=== PATIENT | female | born 1990 | race Caucasian/White ===

== ENCOUNTER 2022-06-17 00:52 | Day surgery (SDC) | payer OTHER, SELFPAY ==
[2022-06-15 12:25] VITALS: BMI 25.0
--- NOTE | 2022-06-15 12:28 | PC.NURSE ---
Report to the Outpatient Waiting Room, entrance under the green pavilion located off [facility], at time 1130 on date 06/17/22. Planned Procedure Time: 1330. Time changes happen often and if your time is changed the preop area will call you the afternoon before. - You and your visitor will be asked to self-screen and do not enter if you have any COVID symptoms. - We encourage only one visitor and NO visitors under age 16 are allowed at this time. Your visitor will receive communication by the phone number that is given day of service. - The patient visitor is requested to social distance or may leave the building when not with patient due to restrictions. - A mask is OPTIONAL within the hospital. Patients may have clear liquids (water, carbonated beverages, clear teas, apple juice) until 3 hours prior to surgery with a maximum of 20 ounces. - No food from midnight until time of surgery Take the following medications with a SIP of water the morning of surgery: NONE Medications to discontinue per physician: N/A Date to take last dose: N/A Please no make-up, nail uzbek, hairspray, perfume, deodorant, or body powder the day of surgery. No jewelry (including any body piercings) or valuables the day of surgery, leave them at home. Please take a shower or bath the night before, or the morning of, surgery with an antibacterial soap. Wear comfortable, loose fitting clothing. - Jewelry must be removed prior to entering the operating room. Rings and piercings that are not removed may be cut off. - The hospital will not accept responsibility for valuables. - Please leave all valuables, including medications, at home the day of surgery. If you are going home after surgery, a licensed horse and wagon driver must drive you home. - NO public transportation without another adult. - We recommend that an adult stay with you for 24 hours following discharge. - We also recommend that you do not drive, make important decision, drink alcoholic beverages, or take any drugs that were not prescribed by your health care provider for at least 24 hours after your discharge time. Follow any additional instructions given to you from your surgeon. If you or anyone in your household have experienced Covid symptoms in the past week, please notify your surgeon or the nurse liaison at the phone number below for possible testing. Telephone instructions given to PT - ANNEL SWAN and asked if any additional questions and then verbalized understanding. Patient advised to call surgeon office or pre surgery nurse liaison [phone] if any additional questions.
[2022-06-17] MEDS: LACTATED RINGERS 1,000 ML 30 ML IV CONT ×2 (12:02→14:01)
[2022-06-17] MEDS: ACETAMINOPHEN 500 MG TABLET 1000 MG PO (12:13)
[2022-06-17 12:16] VITALS: BP 124/71; PULSE 94; RESP 16; TEMP 37.3; O2SAT 100
--- NOTE | 2022-06-17 12:49 | P.PNAN_ITS ---
Anes - Initial Pre Proc Eval Procedure: Operation Date: 06/17/22 13:00 Proposed Procedures p Suction Dilation and Curettage - Chino Clifford MD Date/Time: 06/17/22 12:49 Surgeon: Chino Clifford MD Pre Op Diagnosis: Missed Ab Patient Data Age: 31 Gender: F Height: 1.65 m Weight: 68.1 kg Last Vital Signs Temp 99.1 F 06/17/22 12:16 Pulse 94 06/17/22 12:16 Resp 16 06/17/22 12:16 BP 124/71 06/17/22 12:16 Pulse Ox 100 06/17/22 12:16 O2 Del Method Room Air 06/17/22 12:16 Allergies Allergy/AdvReac Type Severity Reaction Status Date / Time No Known Allergies Allergy Verified 06/17/22 11:47 Home Medications Medication Instructions Recorded Confirmed Type fluticasone propionate 50 1 spray intranasal DAILY 06/15/22 06/17/22 History mcg/actuation nasal spray,suspension Patient hx anesthesia problems: none Family hx anesthesia problems: none Results Review: All pre-operative results and documents have been reviewed as part of the pre- operative evaluation. [facility] Social History Social History Smoking status: Never smoker Alcohol intake: current Alcohol use details: EVERY FEW MONTHS (WHEN NOT ) Substance use: never Substance use type: does not use Living arrangements: with family Spiritual care concerns: No Anes - Eval Final PreProcedure Day of Procedure 06/17/22 12:49 Patient weight: normal Heart: regular rate and rhythm Lungs: clear to auscultation Airway: Mallampati scale class II Neurological: alert and oriented Last oral intake: >/= 8 hours ASA classification: II Emergent: no Anesthetic plan: proceed Anesthesia type and monitoring: general GIVS and standard monitoring Results Review: All pre-operative results and documents have been reviewed as part of the pre- operative evaluation. Informed Consent: The patient's anesthetic plan and its attendant risks and benefits were discussed with the patient/family/POA. Questions were solicited and answers provided to the satisfaction of the patient/family/POA.
--- NOTE | 2022-06-17 12:51 | P.HP_ITS ---
H&P: HPI History of Present Illness Date/Time: 06/17/22 12:51 Chief Complaint: Miscarriage Narrative: 31 y/o at 11w3d gestation by LMP. She had some vaginal bleeding starting 3 days ago. Ultrasound in the office shows IUP with CRL only 9w3d size, with no movement and no cardiac motion. SAB was diagnosed. Her blood type is B neg. Review of Systems 2 Review of Systems: All systems reviewed & are unremarkable except as noted in HPI and below PMFSH Social History Social History Smoking status: Never smoker Alcohol intake: current Alcohol use details: EVERY FEW MONTHS (WHEN NOT ) Substance use: never Substance use type: does not use Living arrangements: with family Spiritual care concerns: No Meds Home Medications and Allergies Home Medications Medication Instructions Recorded Confirmed Type fluticasone propionate 50 1 spray intranasal DAILY 06/15/22 06/17/22 History mcg/actuation nasal spray,suspension Allergies Allergy/AdvReac Type Severity Reaction Status Date / Time No Known Allergies Allergy Verified 06/17/22 11:47 Vital Signs Vital Signs - 24 hr 06/17/22 12:16 Temperature 37.3 C Pulse Rate 94 Respiratory Rate 16 Blood Pressure 124/71 Pulse Oximetry 100 Oxygen Delivery Room Air Exam Const: Orientation/consciousness: patient oriented x3 Other: Well-developed, well-nourished female in no acute distress. Neck: Thyroid: thyroid normal Lymphatic: no lymphadenopathy noted (in neck, axilla or inguinal nodes) Resp: Effort & Inspection: normal respiratory effort Auscultation: clear to auscultation bilaterally Cardio: Rate: regular rate Rhythm: regular rhythm Heart sounds: S1 normal heart sound present and S2 normal heart sound present GI: Other: ABD: Soft, nontender, nondistended. No guarding or rebound tenderness. No hepatosplenomegaly. : General: Yes no CVA tenderness Other: Deferred to OR Back/Spine/Pelvis: Back: no CVA tenderness Skin: General skin exam: normal color and no rashes or lesions noted Neuro: General: patient oriented x3 Extrem: Other: Extremities: nontender with no edema Psych: Mental Status: mental status grossly normal Affect: normal affect Assessment and Plan Assessment and plan (1) Incomplete spontaneous : Code(s): O03.4 - Incomplete spontaneous without complication Status: Acute Assessment and Plan: A: Incomplete SAB. P: Offered expectant management vs. dilation and suction curettage. She prefers the latter. She understands risks of surgery to include risks of anesthesia, risks of pain, infection, bleeding, blood products, thromboembolic phenomena and damage to adjacent structures such as bowel, bladder, ureters, blood vessels and nerves. She understands all these risks and elects to proceed with surgery. She will also require RhoGAM.
--- NOTE | 2022-06-17 13:08 | WPDHPUPDATE1 ---
History and Physical Update Update Date/Time: 06/17/22 13:08 History and Physical has been reviewed, including an updated exam of the patient. There are NO changes in the patient's condition. Risks, benefits, and alternatives have been discussed and questions answered. Patient agrees to proceed with procedure.
[2022-06-17] MEDS: LIDOCAINE HCL 1% PF 30 ML VIAL 10 ML INFILTRATE (13:37)
[2022-06-17] MEDS: KETOROLAC 30 MG/ML VIAL (*BKC) IV PUSH (13:38)
--- NOTE | 2022-06-17 13:44 | W.PM.PROC2 ---
Procedure Note - Detailed Date of Procedure 06/17/22 Pre-op Diagnosis Incomplete SAB Post-op Diagnosis Same Procedure Performed Dilation and suction curettage Surgeon Chino Clifford MD Anesthesia MAC and Local (1% lidocaine paracervical block) Findings POC noted Description of Procedure The patient was taken to the operating room where she was prepared and draped in the usual sterile fashion in the dorsal lithotomy position. The bladder was drained with a red rubber catheter. A sterile speculum was placed into the vagina. The anterior lip of the cervix was grasped with a single-tooth tenaculum. Ten mL of 1% lidocaine was administered in a paracervical block. The cervix was gently dilated using Hegar dilators until an 8mm dilator could be passed. The 8mm curved tip suction curette was advanced. Suction curettage was performed and products of conception were aspirated. Sharp curettage was then performed until a good uterine cry was noted. A final pass with the suction curette was made. The tenaculum was removed. Hemostasis was excellent. Sponge, lap, needle and instrument counts were correct. The patient was taken to the recovery room in stable condition. I was present and scrubbed for the entire procedure. Estimated Blood Loss 50 Drains No Packing No Pathology Yes (endometrial curettings) Complications None Condition Stable Disposition PACU
[2022-06-17 13:46] VITALS: BP 86/54; PULSE 73; RESP 12; O2SAT 97
[2022-06-17 14:15] VITALS: BP 97/57; PULSE 65; RESP 16; O2SAT 100
[2022-06-17] MEDS: RHO(D) IMMUNE GLOBULIN 300 MCG/2 ML SYRINGE IM (14:15)
[2022-06-17 14:45] VITALS: BP 109/63; PULSE 80
== END 2022-06-17 15:07 | disposition home or self-care (01) ==
PROVIDERS: Visit Provider Obstetrics & Gynecology
PROC: (CPT 59812; principal; 2022-06-17 13:00)
DX: O03.4 Incomplete spontaneous abortion without complication (principal); Z3A.11 11 weeks gestation of pregnancy
CPT/HCPCS: 59812; 36415; 85461; 86850; 86900; 86901; 88305; 90384; A9270; J1885; J2250; J2704; J2790; J3010; J7120

== ENCOUNTER 2024-02-24 11:22 | Outpatient (RCR) | payer OTHER, SELFPAY ==
[2024-02-24] MEDS: RHO(D) IMMUNE GLOBULIN 300 MCG/2 ML SYRINGE IM (15:05)
== END 2024-05-24 23:59 | disposition home or self-care (01) ==
LOC: ANHLAB 11:22
PROVIDERS: Visit Provider Obstetrics & Gynecology
DX: Z29.13 Encounter for prophylactic Rho(D) immune globulin (principal); O36.0190 Maternal care for anti-D [Rh] antibodies, unspecified trimester, not applicable or unspecified; Z3A.00 Weeks of gestation of pregnancy not specified
CPT/HCPCS: 36415; 85461; 86850; 86900; 86901; 90384; 96372; J2790

== ENCOUNTER 2024-03-06 10:30 | Outpatient (RCR) | payer OTHER, SELFPAY ==
[2024-03-01 10:48] VITALS: BMI 27.4
[2024-03-01 11:12] VITALS: BMI 27.4
== END 2024-05-15 10:23 | disposition home or self-care (01) ==
LOC: ANHDMC 10:30
PROVIDERS: Visit Provider Obstetrics & Gynecology
DX: O24.319 Unspecified pre-existing diabetes mellitus in pregnancy, unspecified trimester (principal); Z3A.00 Weeks of gestation of pregnancy not specified; Z71.3 Dietary counseling and surveillance; Z71.89 Other specified counseling
CPT/HCPCS: 97802; G0108

== ENCOUNTER 2024-03-10 14:23 | Observation (INO) | payer OTHER, SELFPAY ==
[2024-03-10] VITALS (23 sets, daily range): BP systolic 119–124; BP diastolic 50–71; PULSE 79–106; TEMP 36.6; O2SAT 97–100
[2024-03-10 15:54] LABS: Add Urine Microscopic? YES; Appearance Urine Clear (Clear); Bacteria Urine Rare /hpf; Bilirubin Urine Negative (Negative); Blood Urine Negative (Negative); Color Urine Yellow (Yellow); Glucose Urine UA Negative (Negative); Ketones Urine 1+ mg/dL (Negative); Leukocyte Esterase Ur 1+ LEU/UL (Negative); Nitrate Urine Negative (Negative); Non Pathogenic Casts 0-2; Protein Urine Negative (Negative); RBC Urine 0-2 /hpf (0-2); Specific Grav Ur 1.006 (1.001-1.035); Squamous Epithelial Cell Urine Moderate /hpf (Few); Urobilinogen Urine 0.2 mg/dL (<2.0); pH Urine 6.5 (5.0-9.0)
[2024-03-10] MEDS: TERBUTALINE SULFATE 1 MG/ML VIAL 0.25 MG SUB-Q (16:22)
[2024-03-10 17:16] LABS: Fetal Fibronectin Negative
--- NOTE | 2024-03-13 12:01 | PM.OBTRLD ---
OB - Triage/Final Diagnosis Visit Information Date of evaluation: 03/13/24 Reason for evaluation: threatened labor Comments/Additional reasons for admission: I have assessed the risk for this patient, Mary Kay Adamson, and determined that she would benefit from observation care. Evaluation Laboratory results: Laboratory Tests 03/10/24 03/10/24 15:17 16:42 Urine Color Yellow Urine Appearance Clear Urine pH 6.5 Ur Specific [place] 1.006 Urine Protein Negative Urine Glucose (UA) Negative Urine Ketones 1+ H Ur Blood (Man) Negative Urine Nitrate Negative Urine Bilirubin Negative Urine Urobilinogen 0.2 Leukocyte Esterase Rfl 1+ H Urine RBC 0-2 Urine WBC 6-10 H Ur Squamous Epith Cells Moderate Urine Bacteria Rare Urine Casts 0-2 Fibronectin Negative
== END 2024-03-10 17:35 | disposition home or self-care (01) ==
PROVIDERS: Admitting Provider Obstetrics & Gynecology; Visit Provider Obstetrics & Gynecology
DX: O47.03 False labor before 37 completed weeks of gestation, third trimester (principal); Z3A.30 30 weeks gestation of pregnancy
CPT/HCPCS: 81001; 82731; 87086; 87088; 96372; G0378; G0379; J3105

== ENCOUNTER 2024-03-22 05:23 | Observation (INO) | payer OTHER, SELFPAY ==
[2024-03-22] VITALS (46 sets, daily range): BP systolic 109–117; BP diastolic 62–72; PULSE 73–112; RESP 16; TEMP 36.8; O2SAT 95–100; BMI 28.0
--- NOTE | 2024-03-22 05:23 | PC.NURSE ---
Pt arrives to unit with contractions that began at 0330.
--- NOTE | 2024-03-22 05:42 | OBADM ---
This patient, Mary Kay Adamson, admitted to the OB room OB Post 117 for observation. Patient/family oriented to hospital policies and general routines including ID bracelet, bed and alarms, visiting hours, pain management, procedures, bathroom and other care routines, personal items, smoking policy, room service/diet, and visiting hours. Patient/Family are encouraged to report perceived risks to care and to ask questions if they do not understand what they are told or what they should do.
--- NOTE | 2024-03-22 06:03 | PC.NURSE ---
Called Dr. Clifford, update on contractions every three to four minutes and negative fibronectin on March 10. Orders received to perform cervical exam and administer terbutaline 0.25 mg.
[2024-03-22] MEDS: TERBUTALINE SULFATE 1 MG/ML VIAL 0.25 MG SUB-Q (06:39)
[2024-03-22 07:41] LABS: Glucose Point of Care 99 mg/dl (65-105)
[2024-03-22] MEDS: NIFEdipine 10 MG CAPSULE PO (08:08)
--- NOTE | 2024-03-23 12:22 | PM.OBTRLD ---
OB - Triage/Final Diagnosis Visit Information Reason for evaluation: decreased movement and threatened labor Comments/Additional reasons for admission: I have assessed the risk for this patient, Mary Kay Dupont Bertociarra, and determined that she would benefit from observation care. Evaluation Laboratory results: Laboratory Tests 03/22/24 07:37 POC Capillary Glucose 99
== END 2024-03-22 09:07 | disposition home or self-care (01) ==
PROVIDERS: Admitting Provider Obstetrics & Gynecology; Visit Provider Obstetrics & Gynecology
DX: O36.8130 Decreased fetal movements, third trimester, not applicable or unspecified (principal); O47.03 False labor before 37 completed weeks of gestation, third trimester; Z3A.32 32 weeks gestation of pregnancy
CPT/HCPCS: 82948; 96372; A9270; G0378; G0379; J3105

== ENCOUNTER 2024-03-26 04:30 | Observation (INO) | payer OTHER, SELFPAY ==
[2024-03-26] VITALS (17 sets, daily range): BP systolic 112–116; BP diastolic 66–72; PULSE 83–103; O2SAT 98–100; BMI 28.6
--- NOTE | 2024-03-26 04:53 | PC.NURSE ---
0442-Patient arrives to OB unit with complaints of contractions. Patient states she has been feeling contractions since 0200 and is rating them an 8/10 on the pain scale. Patient denies vaginal bleeding or leaking of fluid. Patient states she has felt baby move. Patient states she has been seen multiple times for this during this and is currently on PO Procardia to home. Patient states she took one dose in the AM and again before bed. Patient states she took another dose around 0230 when she woke up with the contractions and that the Procardia did not help.
[2024-03-26 04:56] LABS: Add Urine Microscopic? NO; Appearance Urine Clear (Clear); Bilirubin Urine Negative (Negative); Blood Urine Negative (Negative); Color Urine Yellow (Yellow); Glucose Urine UA Negative (Negative); Ketones Urine Trace mg/dL (Negative); Leukocyte Esterase Ur Negative LEU/UL (Negative); Nitrate Urine Negative (Negative); Protein Urine Negative (Negative); Specific Grav Ur 1.003 (1.001-1.035); Urobilinogen Urine 0.2 mg/dL (<2.0)
--- NOTE | 2024-03-26 05:05 | PC.NURSE ---
Patient states she has been here multiple times for the same reason. Patient states she has previously gotten terbutaline. Patient states she is a gestational diabetic, but is diet controlled.
[2024-03-26] MEDS: TERBUTALINE SULFATE 1 MG/ML VIAL 0.25 MG SUB-Q (05:21)
[2024-03-26] MEDS: NIFEdipine 10 MG CAPSULE PO (07:01)
--- NOTE | 2024-04-12 14:19 | P.PNOB_ITS ---
OB - Triage/Final Diagnosis Visit Information Comments/Additional reasons for admission: I have assessed the risk for this patient, Mary Kay Adamson, and determined that she would benefit from observation care. Evaluation Laboratory results: Laboratory Tests 03/26/24 04:49 Urine Color Yellow Urine Appearance Clear Urine pH 7.0 Ur Specific [place] 1.003 Urine Protein Negative Urine Glucose (UA) Negative Urine Ketones Trace H Ur Blood (Man) Negative Urine Nitrate Negative Urine Bilirubin Negative Urine Urobilinogen 0.2 Leukocyte Esterase Rfl Negative Final Diagnosis (1) False labor: Code(s): O47.9 - False labor, unspecified Status: Acute
== END 2024-03-26 07:55 | disposition home or self-care (01) ==
PROVIDERS: Admitting Provider Obstetrics & Gynecology; Visit Provider Obstetrics & Gynecology
DX: O47.9 False labor, unspecified (principal)
CPT/HCPCS: 81003; 96372; A9270; G0378; G0379; J3105

== ENCOUNTER 2024-03-31 06:16 | Observation (INO) | payer OTHER, SELFPAY ==
[2024-03-31 06:34] VITALS: BP 120/66; PULSE 94
[2024-03-31 06:40] VITALS: BMI 28.6
--- NOTE | 2024-03-31 06:40 | OBADM ---
This patient, Mary Kay Adamson, admitted to the OB room OB Post 116 for observation. Patient/family oriented to hospital policies and general routines including ID bracelet, bed and alarms, visiting hours, pain management, procedures, bathroom and other care routines, personal items, smoking policy, room service/diet, and visiting hours. Patient/Family are encouraged to report perceived risks to care and to ask questions if they do not understand what they are told or what they should do.
[2024-03-31 06:45] VITALS: BP 111/69; PULSE 98
[2024-03-31 06:58] LABS: OBXCEM ROM Plus Negative
[2024-03-31 06:59] LABS: Add Urine Microscopic? YES; Appearance Urine Clear (Clear); Bacteria Urine None Seen /hpf; Bilirubin Urine Negative (Negative); Blood Urine Negative (Negative); Color Urine Yellow (Yellow); Glucose Urine UA Negative (Negative); Ketones Urine Trace mg/dL (Negative); Leukocyte Esterase Ur Trace LEU/UL (Negative); Nitrate Urine Negative (Negative); Non Pathogenic Casts 0-2; Protein Urine Negative (Negative); RBC Urine 0-2 /hpf (0-2); Specific Grav Ur 1.009 (1.001-1.035); Squamous Epithelial Cell Urine Few /hpf (Few); WBC Urine 0-5 /hpf (0-3)
[2024-03-31 07:00] VITALS: BP 115/66; PULSE 92
--- NOTE | 2024-03-31 07:09 | PM.OBTRLD ---
OB - Triage/Final Diagnosis Visit Information Date of evaluation: 03/31/24 Reason for evaluation: threatened labor Comments/Additional reasons for admission: I have assessed the risk for this patient, Mary Kay Adamson, and determined that she would benefit from observation care. Evaluation Laboratory results: Laboratory Tests 03/31/24 06:56 Membranes Rupture Rom plus negative Membranes Rup Com Yes Vital signs: Vital Signs - 24 hr 03/31/24 06:34 03/31/24 06:45 03/31/24 07:00 Pulse Rate 94 98 92 Blood Pressure 120/66 111/69 115/66 Oxygen Delivery 03/31/24 06:40 Pulse Rate Blood Pressure Oxygen Delivery Room Air
[2024-03-31 07:15] VITALS: BP 111/70; PULSE 98
--- NOTE | 2024-03-31 07:20 | PC.NURSE ---
Dr. Anastasiia Hauser notified of patient's arrival on unit with complaints of leaking and cramping. ROM plus negative, urine WNL. Notified of few contractions seen on monitor and patient already taking Procardia. Orders received to discharge.
[2024-03-31 07:32] VITALS: BP 111/67; PULSE 90
== END 2024-03-31 07:35 | disposition home or self-care (01) ==
PROVIDERS: Admitting Provider Obstetrics & Gynecology; Visit Provider Obstetrics & Gynecology
DX: O47.9 False labor, unspecified (principal)
CPT/HCPCS: 59025; 81001; 84112; G0378; G0379

== ENCOUNTER 2024-05-03 11:38 | Inpatient (IN) | payer OTHER, SELFPAY ==
[2024-05-03] VITALS (60 sets, daily range): BP systolic 107–134; BP diastolic 67–104; PULSE 59–211; RESP 16; TEMP 36.9–37.1; O2SAT 97–100; BMI 28.6
[2024-05-03] MEDS: LIDOCAINE HCL 1% LOCAL INJ 20 ML VIAL (13:35)
[2024-05-03 13:38] LABS: Basophils Percent Auto 0.2 % (0.2-1.2); Eosinophils Percent Auto 0.1 % (0-4.4); Hematocrit 42.7 % (37.0-47.0); Hemoglobin 14.8 g/dL (12.0-15.0); Immature Granulocyte Percent A 0.8 % (0-0.5); Lymphocytes Absolute Auto 1.83 K/mm3 (0.9-3.2); Lymphocytes Percent Auto 15.5 % (18.3-44.2); Mean Corpuscular HGB Conc 34.7 g/dl (32-36); Mean Corpuscular Hemoglobin 31.2 pg (26-34); Mean Corpuscular Volume 90.1 fl (80-100); Mean Platelet Volume 11.2 fl (7.4-10.4); Monocytes Absolute Auto 0.5 K/mm3 (0.1-0.6); Monocytes Percent Auto 4.5 % (2.6-8.5); Neutrophils Absolute Auto 9.3 K/mm3 (1.3-6.7); Neutrophils Percent Auto 78.9 % (45.5-73.1); Platelet Count Result 162 k/mm3 (150-375); Red Blood Count 4.74 M/mm3 (4.2-5.4); Red Cell Distribution Width 14.6 % (11.5-14.5); White Blood Count 11.8 K/mm3 (4.5-10.0)
[2024-05-03] MEDS: ACETAMINOPHEN 500 MG TABLET 1000 MG (13:53)
--- NOTE | 2024-05-03 13:55 | WPDOBADMIT ---
Obstetrics - Admit Note Admission Note: record reviewed. Additions to the history and/or subsequent changes in the physical findings follow. 33 y/o at 38 2/7 weeks with A1DM, GBS neg. Was seen in office today for a routine visit. Noted contractions worsening on arrival to the office. Cervix was closed and thin, and she was sent to L&D for scheduled NST and to rule out labor. Within an hour she was found to have dilation to 7 cm. She was admitted to a labor room and cervix was completely dilated. AVSS NST reactive TOCO: contractions every 3-5 min ABD soft, nontender, gravid, vertex EXT nontender Cervix C+2 A: IUP at term with labor, well-controlled A1DM, GBS neg. P: See delivery note.
--- NOTE | 2024-05-03 13:58 | PM.OBPRVD ---
OB - Vaginal Delivery Note Procedure Delivery date: 05/03/24 Events: Gestational Diabetes and Other (Labor) Induction method: None Delivery monitor: External FHT and External Uterine Route of delivery: Episiotomy description: None Laceration Description: Perineal - 2nd Degree Delivery repair: vicryl (3-0) Specimen: Yes (cord blood, placenta) Quantitative Blood Loss (ml): 320 Anesthesia type: Local (1% lidocaine) Disposition: PACU Complications: None Narrative: 33 y/o at 38 2/7 weeks gestation who presented to the hospital for scheduled NST for A1DM, but also was having increased contractions. Cervix closed, but thin, in the office. Contractions persisted and her cervix dilated completely within 2 hours of her arrival to L&D. She pushed with good effort and delivered the infant's head to the perineum, followed by the body. The nose and mouth were bulb suctioned. After a delay, the cord was clamped and cut. The infant was handed off the field. Cord blood was collected. The placenta delivered spontaneously and was grossly normal in appearance. The usual 3 vessel cord was noted. A second degree midline perineal laceration was sustained. This was infiltrated with 10 mL of 1% lidocaine and reapproximated using 3 0 Vicryl in the usual layered fashion. Excellent hemostasis resulted as did excellent reapproximation of the normal anatomy. Needle and instrument counts were correct. The patient was taken to recovery room in stable condition. The went to the nursery in stable condition. I was present and scrubbed for the entire delivery. Baby Date of : 05/03/24 Time of : 13:29 Gestational Age by Date: 38 gender: Male presentation: vertex position: Left Occiput Anterior Placenta delivery description: Spontaneous and Normal Configuration Cord Vessel Description: 3 Vessels and Delayed Cord Clamping
--- NOTE | 2024-05-03 14:01 | PM.OBDSVD ---
DS: Admitting Diagnosis Discharge Date 05/04/24 Admitting Diagnosis IUP at 38 2/7 weeks Contractions A1DM DS: Discharge Diagnosis Discharge Diagnosis (1) (normal spontaneous vaginal delivery): Code(s): O80 - Encounter for full-term uncomplicated delivery Status: Acute (2) Gestational diabetes mellitus: Code(s): O24.419 - Gestational diabetes mellitus in , unspecified control Status: Acute OB - DS: Summary OB Procedures : None OB Procedures Intrapartum: Spontaneous Vag Delivery OB Procedures: : None Peripartum Data Laceration Description: Perineal - 2nd Degree Episiotomy description: None Time Spent with Patient Time attestation: Total time spent providing and/or coordinating discharge services: DS: Data Data Completed and Pending Labs on day of discharge: Labs from last 24 hours 05/03/24 13:31 WBC Pending RBC Pending Hgb Pending Hct Pending MCV Pending MCH Pending MCHC Pending RDW Pending Plt Count Pending MPV Pending Immature Gran % (Auto) Pending Neut % (Auto) Pending Lymph % (Auto) Pending [place] % (Auto) Pending Eos % (Auto) Pending Baso % (Auto) Pending Lymph # (Auto) Pending [place] # (Auto) Pending Eos # (Auto) Pending Baso # (Auto) Pending Abs Immat Gran (auto) Pending Absolute Neuts (auto) Pending Absolute Nucleated RBC Pending Nucleated RBC % Pending RPR Pending HIV 1&2 Ab/P24 Ag 4thGn Pending Discharge Plan Discharge Attending physician on discharge: Chino Clifford Discharging Clinician: Chino Clifford Patient Disposition: Home, Self-Care Activity: pelvic rest Diet: regular Discharge Instructions: Call or return if temperature above 100.4? F, increased abdominal pain, increased vaginal bleeding or any new problems. Stand Alone Forms: General Discharge Information Follow-up/Referrals: Chino Clifford MD [Physician] - 6 Weeks Discharge Medications: New ibuprofen 600 mg tablet 600 mg PO Q6H PRN (Reason: cramps) Qty: 30 0RF Continued PNV cmb#95-ferrous fumarate-FA [] 28 mg iron- 800 mcg Tablet 1 tablet PO DAILY Discontinued nifedipine 10 mg Capsule 10 mg PO Q4H 30 Days Qty: 180 0RF Date of admission: 05/03/24 11:38 Primary Care Provider: PHYSICIAN,NECKTIE CENTRALIZING MACHINE OPERATOR Admitting Provider: Chino Clifford Attending physician on admission: Chino Clifford Condition: Stable
[2024-05-03] MEDS: OXYTOCIN 30 UNITS/NS 500 ML 30 UNITS/500 ML BAG 999 UNITS (14:11)
[2024-05-03] MEDS: OXYTOCIN 30 UNITS/NS 500 ML 30 UNITS/500 ML BAG 125 UNITS IV CONT (14:12)
[2024-05-03] MEDS: IBUPROFEN 600 MG TABLET (14:16)
[2024-05-03 14:28] LABS: HIV 1/2 Ab P24 Ag Result Negative (Negative)
--- NOTE | 2024-05-03 15:15 | LDADM ---
This patient, Mary Kay Adamson, was admitted to Labor/Delivery/Recovery 108 on 05/03/24 at 11:38. Plans for labor, pain management and were discussed with patient. Patient/family oriented to hospital policies and general routines including ID bracelet, bed and alarms, visiting hours, pain management, procedures, bathroom and other care routines, personal items, smoking policy, room service/diet and guest tray routines, infant security routines, and visiting hours. Patient/Family are encouraged to report perceived risks to care and to ask questions if they do not understand what they are told or what they should do. See OBIX for further documentation.
--- NOTE | 2024-05-03 15:22 | PC.NURSE ---
1441. Consulted with patient per L&D nurse request to assist with latching post delivery. Mom reports she has a 5 year old who she was not able to get to latch to the breast at all due to her flat nipples. She has heard of a nipple shield and reports she would be fine to try using one. Attempted to bring baby to the breast without the nipple shield. was unable to maintain a latch. Nipple shield provided to mother due to bilateral flat nipples. was able to latch successfully to the left breast with the shield in cross cradle position, mom had visible milk coming collecting in the shield. Infant remained latched and rhythmically suckling for 10 min. Mom encouraged to do s2s after the feeding, and instructed on watching for infants early feeding cues and relatching with infants next feeding cues. Reviewed good handwashing, cleaning the nipple shield and the appropriate way to apply and use as a tool. Discussed with mom the nipple shield precautions, possible complications associated with the risks and benefits. Reviewed practicing with a nipple shield, then without and how to protect the milk supply and production. Mom and baby guide referred to as a resource for outpatient services, community resources and when to call a provider. Mom voiced understanding of the importance of hand expression, nipple stimulation and initiating a pumping schedule if continues to nurse with the shield. Reported to the Primary RN.
--- NOTE | 2024-05-03 15:50 | PC.NURSE ---
[address] Clifford to report QBL of total 500. clots expelled bimanual done by MS. no additional clots but continuing of a consistent bleed. TO TXA ordered
[2024-05-03] MEDS: TRANEXAMIC ACID 1,000MG/ISO100 1,000 MG/100 ML BAG 200 MG IVPB (16:32)
[2024-05-03 18:23] LABS: Rapid Plasma Reagin Non-Reactive (NonReactive)
--- NOTE | 2024-05-03 19:20 | OBPPTRN ---
Patient transferred to post room #277 via wheelchair. Support person present. Oriented to unit, room, information board, rooming in, admission packet and security measures. Patient verbalizes understanding. with patient.
[2024-05-03] MEDS: ACETAMINOPHEN 325 MG TABLET 650 MG PO (20:51)
[2024-05-04] MEDS: IBUPROFEN 600 MG TABLET PO ×2 (00:15→08:57)
[2024-05-04 04:15] VITALS: BP 122/82; PULSE 69; RESP 16; TEMP 36.5; O2SAT 97
[2024-05-04] MEDS: ACETAMINOPHEN 325 MG TABLET 650 MG PO ×2 (04:30→13:29)
[2024-05-04 05:57] LABS: Hematocrit 34.6 % (37.0-47.0); Hemoglobin 12.1 g/dL (12.0-15.0)
[2024-05-04 07:45] VITALS: BP 126/74; PULSE 81; RESP 18; TEMP 37; O2SAT 98
[2024-05-04] MEDS: MULTIVIT/MIN/PREN/FOL AC/IRON TABLET 1 TAB PO (08:52)
--- NOTE | 2024-05-04 11:01 | PC.NURSE ---
Brought pt bottles for infant per maternal request. Pt informed MD and this RN that she is switching to bottles.
[2024-05-04 12:10] VITALS: BP 143/84; PULSE 70; RESP 16; TEMP 36.9; O2SAT 100
--- NOTE | 2024-05-04 13:22 | PM.OBPNVD ---
OB - PN: Subj Subjective Date/time seen: 05/04/24 13:22 Narrative: Pain OK. Wants circumcision for son. Would like to go home. OB - PN: Obj Data Labs 05/04/24 03:51 Labs: Laboratory Results - last 24 hr 05/03/24 05/04/24 05/04/24 13:31 03:51 05:06 WBC 11.8 H RBC 4.74 Hgb 14.8 12.1 Hct 42.7 34.6 L MCV 90.1 MCH 31.2 MCHC 34.7 RDW 14.6 H Plt Count 162 MPV 11.2 H Immature Gran % (Auto) 0.8 H Neut % (Auto) 78.9 H Lymph % (Auto) 15.5 L [place] % (Auto) 4.5 Eos % (Auto) 0.1 Baso % (Auto) 0.2 Lymph # (Auto) 1.83 [place] # (Auto) 0.5 Eos # (Auto) 0.0 Baso # (Auto) 0.0 Abs Immat Gran (auto) 0.10 H Absolute Neuts (auto) 9.3 H Absolute Nucleated RBC 0.000 Nucleated RBC % 0.0 RPR Non-reactive HIV 1&2 Ab/P24 Ag 4thGn Negative Blood Type B Negative B Negative Antibody Screen Positive TNP Antibody Identification Passive Due to RH Imm Glob Antigen Identification Cancelled GENEVIEVE, IgG Interpret Negative GENEVIEVE, Poly Interpret Not Performed GENEVIEVE, Complement Interp Negative Screen Negative Baby's Blood Type B pos Baby's GENEVIEVE Positive Doses of RhIg Required 1 OB - PN A/P Plan day: 1 Comments: A: PPD#1, doing well. P: Reviewed circ. Home to f/u 6 weeks. Exam Psych: Other: AVSS ABD soft, nontender, fundus firm EXT nontender
[2024-05-04] MEDS: MEASLES,MUMPS,RUBELLA VACCINE 0.5 ML VIAL SUB-Q (15:01)
[2024-05-04] MEDS: RHO(D) IMMUNE GLOBULIN 300 MCG/2 ML SYRINGE IM (15:01)
[2024-05-05 09:10] VITALS: BP 140/84; PULSE 94; RESP 20; TEMP 36.9; O2SAT 100
== END 2024-05-04 16:05 | disposition home or self-care (01) | DRG 807 ==
LOC: ANHLDR 14:03 → ANHOB2 05-04 00:26
PROVIDERS: Admitting Provider Obstetrics & Gynecology; Visit Provider Obstetrics & Gynecology
DX: O24.429 Gestational diabetes mellitus in childbirth, unspecified control (principal); Z37.0 Single live birth; O70.1 Second degree perineal laceration during delivery; O62.3 Precipitate labor; Z3A.38 38 weeks gestation of pregnancy
CPT/HCPCS: 36415; 85014; 85018; 85025; 85461; 86592; 86703; 86850; 86880; 86900; 86901; 88307; 90384; 90710; A9270; G0432; J2590; J2790

== ENCOUNTER 2024-05-03 11:40 | Outpatient (RCR) | payer OTHER, SELFPAY ==
[2024-04-05 11:09] VITALS: BP 114/73; PULSE 69
[2024-04-12 14:54] VITALS: BP 122/71; PULSE 87
[2024-04-19 12:00] VITALS: BP 124/62; PULSE 75
[2024-04-26 10:48] VITALS: BP 117/73; PULSE 70
== END 2024-06-12 09:44 | disposition home or self-care (01) ==
LOC: ANHOBOP 11:40
PROVIDERS: Visit Provider Obstetrics & Gynecology
DX: O24.419 Gestational diabetes mellitus in pregnancy, unspecified control (principal); O09.213 Supervision of pregnancy with history of pre-term labor, third trimester; Z3A.34 34 weeks gestation of pregnancy
CPT/HCPCS: 59025

== ENCOUNTER 2024-12-24 17:38 | Observation (INO) | payer OTHER, SELFPAY ==
--- NOTE | ~2024-12-24 | US_ITS ---
EXAM: ABDOMEN ULTRASOUND HISTORY: RUQ pain, abnormal CT COMPARISON: Reference is made to a CT examination of the abdomen and pelvis, performed approximately 12 hours earlier. FINDINGS: LIVER: The liver is increased in echogenicity and unremarkable in size measuring 17 cm in longitudina l dimension. The portal vein is patent, demonstrating phasic hepatopedal flow. GALLBLADDER: Multiple small mobile stones are identified within the gallbladder. Gallbladder wall thi ckening measuring up to 4 mm is noted, without pericholecystic fluid. No color flow was interrogated determine hyperemia. No sonographic Guido sign is present (although the patient is medicated with both morphine and Torad ol). BILE DUCTS: Common bile duct measures 4.23mm. PANCREAS: Limited evaluation of the pancreas secondary to overlying bowel gas IMPRESSION: Cholelithiasis with gallbladder wall thickening, but without pericholecystic fluid. These findings taken together likely represent acute cholecystitis for which clinical correlation is needed. Reviewed, dictated and finalized at location A. IMPRESSION: Cholelithiasis with gallbladder wall thickening, but without pericholecystic fl uid. These findings taken together likely represent acute cholecystitis for which cl inical correlation is needed.
--- NOTE | ~2024-12-24 | CT_ITS ---
CLINICAL INDICATION: Transaminitis. Epigastric abdominal pain. COMPARISON: None. TECHNIQUE: Multiple contiguous axial images of the abdomen and pelvis were performed following the ad ministration of with 100 mL Omnipaque-350 intravenous contrast The dose-length product (DLP) was 307.69 mGy-cm. Automated exposure control and iterative reconstruction technique were employed. FINDINGS/OBSERVATIONS: Visualized lower thorax: The bilateral lung bases are clear. The heart is of normal size, without pericardial effusion. Liver: The liver demonstrates homogeneous enhancement and is enlarged measuring 20 cm in longitudinal dimens ion. Gallbladder and biliary system: The gallbladder is distended, with trace surrounding inflammatory change. Pancreas: The pancreas enhances homogeneously without ductal dilatation. Spleen: The spleen enhances homogeneously and is not enlarged. Kidneys: The bilateral kidneys enhance symmetrically and demonstrate mild hydronephrosis without an obstructin g stone identified. Adrenal glands: Unremarkable. Gastrointestinal tract: Fecal stasis within the colon. Appendix: The appendix is not definitively visualized. However, no pericecal inflammatory change is identified suggest the presence of acute appendicitis. Vasculature: Unremarkable. Lymph nodes: No pathologically enlarged or morphologically suspicious lymph nodes within the retroperitoneum or at the root of the mesentery. Pelvic structures: The bladder is distended with thickened jain and surrounding inflammatory change. The uterus is retroverted and retroflexed. 2 cm involuting cyst within the right ovary, with trace free fluid in the pelvis, likely physiologic. Body wall and musculoskeletal: Small fat-containing umbilical hernia. No significant degenerative disease within the lower thoracic or lumbosacral spine. IMPRESSION: Gallbladder distention with trace surrounding inflammatory change. Hepatomegaly. The bladder is distended, and demonstrates surrounding inflammatory change and thickened jain. Mild bilateral hydronephrosis, without an obstructing stone identified. 2 cm involuting cyst within the right ovary, as detailed above. Reviewed, dictated and finalized at location A.
--- OUTSIDE RECORDS SUMMARY | 2024-12-24 17:41 | XMS_ITS | Clinical Summary ---
Author Organization [facility] Address [address] [place] [address] Care Team Providers Care Karate Black Belt Name Role Phone Unavailable Primary Care Provider Unavailabl e Source Comments [facility] [employer],non-owned Affiliates and Associated Physician Practices is amultiple site organization consisting of ambulatory clinics and hospital sitesin [place], [place], [place] and [place]. This disclosure is being madepursuant to the Care Everywhere program and may not contain all information available regarding this patient. Last updated 18.[facility] [employer] Social History Tobacco Use Types Packs/Day Years Used Date Smoking Tobacco: Never Assessed Comments Unknown Sex and Gender Information Value Date Recorded Sex Assigned at Not on file Legal Sex Female 4:12 AM CDT Gender Identity Not on file Sexual Orientation Not on file Plan of Treatment Health Maintenance Due Date Last Done Comments PAP SMEAR 1991 HIV SCREENING 10/22/2006 HEPATITIS C SCREENING 10/18/2009 DTAP/TDAP/TD VACCINES (1 - Tdap) 10/22/2010 HEPATITIS B VACCINE (1 of 3 - 19+ 3-dose series) 10/22/2010 COVID-19 VACCINE ( - 2023-2 5 season) 2024 DEPRESSION SCREENING 08/09/2024 INFLUENZA VACCINE (Season Ended) 2025 ZOSTER VACCINE (1 of 2) 10/22/2041 HIB VACCINE Aged Out No longer eligi ble based on patient's age to complete this topic HPV VACCINE Aged Out No longer eligi ble based on patient's age to complete this topic MENINGOCOCCAL (Group B) VACC INE SHARED DECISION-MAKING Aged Out No longer eligibl e based on patient's age to complete this topic MENINGOCOCCAL GROUPS A/C/Y/W VACCINE Aged Out No longer eligible b ased on patient's age to complete this topic PNEUMOCOCCAL VACCINE Aged Out No long er eligible based on patient's age to complete this topic Insurance HEALTH CARE Member Subscriber Plan / Payer (Ef fective 2018-Present) Name:Mary Kay Adamson Relation to Subscriber:Self Name:IRLANDAISIDROMARY KAY Payer ID:[id number] (NAIC) Type:HMO Address: [place] [id number] SELF PAY NO INSURANCE Member Subscriber Plan / Payer (Ef fective for All Dates) Name:Mary Kay Adamson Member ID:Not on file Relation to Subscriber:Not on file Name:MARY KAY ADAMSON Subscriber ID:Not on file (Home) Address: [address] [place] [address] Payer ID:Not on file Group ID:Not on file Type:Self Pay Address: [facility] [employer]
[2024-12-24 17:55] VITALS: BP 141/91; PULSE 72; RESP 16; TEMP 36.6; O2SAT 100
--- NOTE | 2024-12-24 17:59 | ED_ITS ---
HPI - Abdominal Pain General Chief Complaint: Abdominal Pain <Leida Young PA-C - Last Filed: 12/24/24 22:07> Stated Complaint: UPPER ABD PAIN,N/V <Leida Young PA-C - Last Filed: 12/24/24 22:07> Time Seen by Provider: 12/24/24 18:01 <Leida Young PA-C - Last Filed: 12/24/24 22:07> Focused HPI: 34 y/o F With no past medical history presents to the emergency department for intermittent epigastric and right upper quadrant abdominal pain for the past month, worsening over the past week. Patient states she has noticed her pain is worse when she eats spicy foods and fried foods. Today at 11:00 a.m. she had a turkey sandwich and around 2:00 p.m. began developing worsening pain in her epigastrium and right upper quadrant which prompted her to come to the ED. She reports associated nausea and vomiting. Denies fever, chest pain or shortness of breath, diarrhea. No prior abdominal surgeries. GENERAL: Well-appearing, well-nourished, and in no acute distress. HEAD: Normocephalic, atraumatic. CHEST: Clear to auscultation. ?No respiratory distress. ABD: Abdomen soft with tenderness epigastrium and right upper quadrant. Positive Guido sign. No rebound or rigidity. No CVA tenderness HEART: Regular rate and rhythm.? NEURO: ?Alert and oriented x3. Patient screened in triage and initial orders placed.? ?Additional care and disposition to be based upon?diagnostic testing and treatment. <ANUSHA Pina Last Filed: 12/24/24 22:07> History of Present Illness HPI narrative: Agree with the above triage note. <Leida Young PA-C - Last Filed: 12/24/24 22:07> Related Data Home Medications: Home Medications ?Medication ?Instructions ?Recorded ?Confirmed ?Last Taken ?Type fluticasone propionate 50 1 spray intranasal DAILY allergy 12/25/24 12/25/24 Unknown History mcg/actuation nasal symptoms spray,suspension (24 Hour Allergy Relief) <ANUSHA Pina Last Filed: 12/24/24 22:07> Allergies/Adverse Reactions: Allergies Allergy/AdvReac Type Severity Reaction Status Date / Time No Known Allergies Allergy Verified 12/25/24 00:14 <Leida Young PA-C - Last Filed: 12/24/24 22:07> Review of Systems 2 Review of Systems: All systems reviewed & are unremarkable except as noted in HPI and below <Leida Young PA-C - Last Filed: 12/24/24 22:07> [facility] Family History Family History: Family History (Updated 12/25/24 @ 00:22 by Kevyn Horton RN) Mother No problems noted. Grandparent Diabetes mellitus Sibling Hyperlipemia Father Hyperlipemia <Leida Young PA-C - Last Filed: 12/24/24 22:07> Social History Social History: Social History Smoking status: Never smoker Alcohol intake: current Drinks per week: 1 Alcohol use details: EVERY FEW MONTHS (WHEN NOT ) Substance use: never Substance use type: does not use Do You Feel Safe in your Home?: Yes Lack of Transportation: No Lack of Food: Never True Current Housing: I Have Housing Concerned About Future Housing: No Difficulty Paying Gas/Electric Bills: No Difficulty Paying for Meds: No Currently Unemployed: No Education: Bachelor's Degree Difficulty w/ Childcare or Family Care: No Living arrangements: with family Spiritual care concerns: No <Leida Young PA-C - Last Filed: 12/24/24 22:07> Exam 2 Narrative: GENERAL: Well-appearing, well-nourished, and in no acute distress. HEAD: Normocephalic, atraumatic. EYES: EOMI. ENT: Nares clear, no rhinorrhea or epistaxis. Mucous membranes moist. NECK: Supple. CHEST: Clear to auscultation. No respiratory distress. HEART: Regular rate and rhythm. No murmur heard. Normal peripheral pulses. ABDOMEN: Normoactive bowel sounds. Abdomen soft with tenderness in the right upper quadrant and positive Guido sign. Tenderness in epigastrium. No rebound or rigidity. EXTREMITIES: Normal range of motion. No edema. SKIN: Warm, dry, no rash. NEURO: No focal deficits. Alert and oriented x3 <Leida Young PA-C - Last Filed: 12/24/24 22:07> Course CIVIL ENGINEER'S AIDE/PA Physician Supervision I agree with midlevel documentation; I performed the medical decision making component of this evaluation. <Tracey Winchester MD - Last Filed: 12/25/24 03:21> Vital Signs Vital signs: Vital Signs Temperature 97.9 F 12/24/24 17:55 Pulse Rate 72 12/24/24 17:55 Respiratory Rate 16 12/24/24 17:55 Blood Pressure 141/91 H 12/24/24 17:55 Pulse Oximetry 100 12/24/24 17:55 Temperature 98.1 F 12/25/24 00:12 Pulse Rate 94 12/25/24 00:12 Respiratory Rate 18 12/25/24 00:12 Blood Pressure 131/87 12/25/24 00:12 Pulse Oximetry 100 12/25/24 00:12 Oxygen Delivery Room Air 12/25/24 00:36 <Leida Young PA-C - Last Filed: 12/24/24 22:07> Vital Signs Temperature 97.9 F 12/24/24 17:55 Pulse Rate 72 12/24/24 17:55 Respiratory Rate 16 12/24/24 17:55 Blood Pressure 141/91 H 12/24/24 17:55 Pulse Oximetry 100 12/24/24 17:55 Temperature 98.1 F 12/25/24 00:12 Pulse Rate 94 12/25/24 00:12 Respiratory Rate 18 12/25/24 00:12 Blood Pressure 131/87 12/25/24 00:12 Pulse Oximetry 100 12/25/24 00:12 Oxygen Delivery Room Air 12/25/24 00:36 <Tracey Winchester MD - Last Filed: 12/25/24 03:21> MDM - Abdominal Pain MDM Narrative Medical decision making narrative: 34-year-old female presents emergency department for intermittent right upper quadrant and epigastric abdominal pain for the past month, worsening over the past few days. Vital stable. Patient is afebrile and nontoxic appearing. Exam is significant for right upper quadrant epigastric tenderness on exam with positive Guido sign. Lab work with leukocytosis of 10.5. Potassium with mild hypokalemia 3.3 which is been orally repleted. LFTs remarkable for bilirubin of 1.7, AST 181 and ALT of 615, normal alk-phos and normal lipase. is negative. UA with ketonuria, no a blood cells are RBCs. Lactic within normal limits. CT abd/pelvis shows IMPRESSION: Gallbladder distention with trace surrounding inflammatory change. Hepatomegaly. The bladder is distended, and demonstrates surrounding inflammatory change and thickened jain. Mild bilateral hydronephrosis, without an obstructing stone identified. 2 cm involuting cyst within the right ovary, as detailed above. Patient updated on results. She is having no lower abdominal pain, no need for pelvic ultrasound at this time. UA without evidence of UTI. Pt did void her bladder with post void residual bladder scan showing 35ccs. She received Toradol, Pepcid and Zofran with improvement, however pain is starting to return. Will provide another round of Toradol.. Discussed case with General surgery, Dr. Mukherjee, who agrees to admission to his service. Pt started on Zosyn with prn orders for pain and nausea placed. <Leida Young PA-C - Last Filed: 12/24/24 22:07> Lab Data Result diagrams: 12/24/24 18:36 12/24/24 18:36 <Leida Young PA-C - Last Filed: 12/24/24 22:07> Labs: Lab Results 12/24/24 12/24/24 12/24/24 Range/Units 18:36 18:57 19:25 WBC 10.5 H (4.5-10.0) K/mm3 RBC 4.99 (4.2-5.4) M/mm3 Hgb 14.8 (12.0-15.0) g/dL Hct 42.8 (37.0-47.0) % MCV 85.8 (80-100) fl MCH 29.7 (26-34) pg MCHC 34.6 (32-36) g/dl RDW 12.7 (11.5-14.5) % Plt Count 220 (150-375) k/mm3 MPV 9.7 (7.4-10.4) fl Immature Gran % (Auto) 0.3 (0-0.5) % Neut % (Auto) 73.1 (45.5-73.1) % Lymph % (Auto) 20.7 (18.3-44.2) % [place] % (Auto) 5.2 (2.6-8.5) % Eos % (Auto) 0.3 (0-4.4) % Baso % (Auto) 0.4 (0.2-1.2) % Lymph # (Auto) 2.18 (0.9-3.2) K/mm3 [place] # (Auto) 0.6 (0.1-0.6) K/mm3 Eos # (Auto) 0.0 (0-0.3) K/mm3 Baso # (Auto) 0.0 (0.0-0.1) K/mm3 Abs Immat Gran (auto) 0.03 (0.00-0.031) K/mm3 Absolute Neuts (auto) 7.7 H (1.3-6.7) K/mm3 Absolute Nucleated RBC 0.000 (0.0-0.012) K/mm3 Nucleated RBC % 0.0 (0.0-0.2) % Sodium 138 (137-145) mmol/L Potassium 3.3 L (3.4-5.0) mmol/L Chloride 102 (98-107) mmol/L Carbon Dioxide 23 (22-30) mmol/L Anion Gap 13 H (4-12) mmol/L BUN 16 (7-17) mg/dL Creatinine 0.85 (0.7-1.0) mg/dL Estim Creat Clear Calc 74 ml/min Estimated GFR > 60 (59 - ) Glucose 114 H (65-110) mg/dL Lactic Acid 0.8 (0.7-2.0) mmol/L Calcium 9.4 (8.4-10.2) mg/dL Total Bilirubin 1.7 H (0.2-1.3) mg/dL AST 181 H (14-36) U/L ALT 615 H (6-35) U/L Alkaline Phosphatase 107 (38-126) U/L Total Protein 8.0 (6.3-8.2) g/dL Albumin 4.8 (3.5-5.1) g/dL Lipase 93 (23-300) U/L Urine Color Dark yellow (Yellow) Urine Appearance Clear (Clear) Urine pH 6.0 (5.0-9.0) Ur Specific [place] 1.029 (1.001-1.035) Urine Protein Trace (Negative) mg/dL Urine Glucose (UA) Negative (Negative) mg/dL Urine Ketones 3+ H (Negative) mg/dL Ur Blood (Man) Negative (Negative) Urine Nitrate Negative (Negative) Urine Bilirubin 1+ H (Negative) Urine Urobilinogen 2.0 H (<2.0) mg/dL Leukocyte Esterase Rfl Negative (Negative) LEIDY/UL Urine RBC 0-2 (0-2) /hpf Urine WBC 0-5 (0-3) /hpf Ur Squamous Epith Cells Occasional (Few) /hpf Urine Bacteria None seen /hpf Urine Casts 0-2 POC Urine HCG, Qual Negative (Negative) <Leida Young PA-C - Last Filed: 12/24/24 22:07> Lab Results 12/24/24 12/24/24 12/24/24 Range/Units 18:36 18:57 19:25 WBC 10.5 H (4.5-10.0) K/mm3 RBC 4.99 (4.2-5.4) M/mm3 Hgb 14.8 (12.0-15.0) g/dL Hct 42.8 (37.0-47.0) % MCV 85.8 (80-100) fl MCH 29.7 (26-34) pg MCHC 34.6 (32-36) g/dl RDW 12.7 (11.5-14.5) % Plt Count 220 (150-375) k/mm3 MPV 9.7 (7.4-10.4) fl Immature Gran % (Auto) 0.3 (0-0.5) % Neut % (Auto) 73.1 (45.5-73.1) % Lymph % (Auto) 20.7 (18.3-44.2) % [place] % (Auto) 5.2 (2.6-8.5) % Eos % (Auto) 0.3 (0-4.4) % Baso % (Auto) 0.4 (0.2-1.2) % Lymph # (Auto) 2.18 (0.9-3.2) K/mm3 [place] # (Auto) 0.6 (0.1-0.6) K/mm3 Eos # (Auto) 0.0 (0-0.3) K/mm3 Baso # (Auto) 0.0 (0.0-0.1) K/mm3 Abs Immat Gran (auto) 0.03 (0.00-0.031) K/mm3 Absolute Neuts (auto) 7.7 H (1.3-6.7) K/mm3 Absolute Nucleated RBC 0.000 (0.0-0.012) K/mm3 Nucleated RBC % 0.0 (0.0-0.2) % Sodium 138 (137-145) mmol/L Potassium 3.3 L (3.4-5.0) mmol/L Chloride 102 (98-107) mmol/L Carbon Dioxide 23 (22-30) mmol/L Anion Gap 13 H (4-12) mmol/L BUN 16 (7-17) mg/dL Creatinine 0.85 (0.7-1.0) mg/dL Estim Creat Clear Calc 74 ml/min Estimated GFR > 60 (59 - ) Glucose 114 H (65-110) mg/dL Lactic Acid 0.8 (0.7-2.0) mmol/L Calcium 9.4 (8.4-10.2) mg/dL Total Bilirubin 1.7 H (0.2-1.3) mg/dL AST 181 H (14-36) U/L ALT 615 H (6-35) U/L Alkaline Phosphatase 107 (38-126) U/L Total Protein 8.0 (6.3-8.2) g/dL Albumin 4.8 (3.5-5.1) g/dL Lipase 93 (23-300) U/L Urine Color Dark yellow (Yellow) Urine Appearance Clear (Clear) Urine pH 6.0 (5.0-9.0) Ur Specific [place] 1.029 (1.001-1.035) Urine Protein Trace (Negative) mg/dL Urine Glucose (UA) Negative (Negative) mg/dL Urine Ketones 3+ H (Negative) mg/dL Ur Blood (Man) Negative (Negative) Urine Nitrate Negative (Negative) Urine Bilirubin 1+ H (Negative) Urine Urobilinogen 2.0 H (<2.0) mg/dL Leukocyte Esterase Rfl Negative (Negative) LEIDY/UL Urine RBC 0-2 (0-2) /hpf Urine WBC 0-5 (0-3) /hpf Ur Squamous Epith Cells Occasional (Few) /hpf Urine Bacteria None seen /hpf Urine Casts 0-2 POC Urine HCG, Qual Negative (Negative) <Tracey Winchester MD - Last Filed: 12/25/24 03:21> Imaging Data Radiologist's impression: ITS Impressions Abdomen/Pelvis CT 12/24/24 19:56 IMPRESSION: Gallbladder distention with trace surrounding inflammatory change. Hepatomegaly. The bladder is distended, and demonstrates surrounding inflammatory change and thickened jain. Mild bilateral hydronephrosis, without an obstructing stone identified. 2 cm involuting cyst within the right ovary, as detailed above. <Leida Young PA-C - Last Filed: 12/24/24 22:07> ITS Impressions Abdomen/Pelvis CT 12/24/24 19:56 IMPRESSION: Gallbladder distention with trace surrounding inflammatory change. Hepatomegaly. The bladder is distended, and demonstrates surrounding inflammatory change and thickened jain. Mild bilateral hydronephrosis, without an obstructing stone identified. 2 cm involuting cyst within the right ovary, as detailed above. <Tracey Winchester MD - Last Filed: 12/25/24 03:21> Discharge Plan Discharge Clinical Impression: Acute cholecystitis, Hepatomegaly, Cyst of right ovary <Leida Young PA-C - Last Filed: 12/24/24 22:07> Patient Disposition: Still a Patient <Leida Young PA-C - Last Filed: 12/24/24 22:07> Condition: Stable <Leida Young PA-C - Last Filed: 12/24/24 22:07>
--- OUTSIDE RECORDS SUMMARY | 2024-12-24 18:13 | XMS_ITS | Clinical Summary ---
Author Organization [facility] Address [address] [place] [address] Care Team Providers Care Industrial Sewer Name Role Phone Unavailable Primary Care Provider Unavailabl e Source Comments [facility] [employer],non-owned Affiliates and Associated Physician Practices is amultiple site organization consisting of ambulatory clinics and hospital sitesin [place], [place], [place] and [place]. This disclosure is being madepursuant to the Care Everywhere program and may not contain all information available regarding this patient. Last updated 18.[facility] Social History Tobacco Use Types Packs/Day Years [...] Name:IRLANDAISIDROMARY KAY Payer ID:[id number] (NAIC) Type:HMO Address: [place] [id number] SELF PAY NO INSURANCE Member Subscriber Plan / Payer (Ef fective for All Dates) Name:Mary Kay Adamson Member ID:Not on file Relation to Subscriber:Not on file Name:MARY KAY ADAMSON Subscriber ID:Not on file (Home) Address: [address] [place] [address] Payer ID:Not on file Group ID:Not on file Type:Self Pay Address: [facility] [employer]
[2024-12-24] MEDS: KETOROLAC 15 MG/ML VIAL (*BKC) IV PUSH ×2 (18:37→21:48)
[2024-12-24] MEDS: ONDANSETRON INJ 4 MG/2 ML VIAL IV PUSH (18:37)
[2024-12-24] MEDS: FAMOTIDINE 20 MG/2 ML VIAL IV PUSH (18:38)
[2024-12-24 18:54] LABS: Basophils Percent Auto 0.4 % (0.2-1.2); Eosinophils Percent Auto 0.3 % (0-4.4); Hematocrit 42.8 % (37.0-47.0); Hemoglobin 14.8 g/dL (12.0-15.0); Immature Granulocyte Absolute 0.03 K/mm3 (0.00-0.031); Immature Granulocyte Percent A 0.3 % (0-0.5); Lymphocytes Absolute Auto 2.18 K/mm3 (0.9-3.2); Lymphocytes Percent Auto 20.7 % (18.3-44.2); Mean Corpuscular HGB Conc 34.6 g/dl (32-36); Mean Corpuscular Hemoglobin 29.7 pg (26-34); Mean Corpuscular Volume 85.8 fl (80-100); Mean Platelet Volume 9.7 fl (7.4-10.4); Monocytes Absolute Auto 0.6 K/mm3 (0.1-0.6); Monocytes Percent Auto 5.2 % (2.6-8.5); Neutrophils Absolute Auto 7.7 K/mm3 (1.3-6.7); Neutrophils Percent Auto 73.1 % (45.5-73.1); Platelet Count Result 220 k/mm3 (150-375); Red Blood Count 4.99 M/mm3 (4.2-5.4); Red Cell Distribution Width 12.7 % (11.5-14.5); White Blood Count 10.5 K/mm3 (4.5-10.0)
[2024-12-24 18:59] LABS: BEDSIDEPREGUCG Negative (Negative)
[2024-12-24 19:04] LABS: Alanine Aminotransferase 615 U/L (6-35); Albumin Level 4.8 g/dL (3.5-5.1); Alkaline Phosphatase 107 U/L (38-126); Anion Gap 13 mmol/L (4-12); Aspartate Amino Transferase 181 U/L (14-36); Bilirubin,Total 1.7 mg/dL (0.2-1.3); Blood Urea Nitrogen 16 mg/dL (7-17); Calcium 9.4 mg/dL (8.4-10.2); Carbon Dioxide 23 mmol/L (22-30); Chloride 102 mmol/L (98-107); Estimated CRCL calculation 74 ml/min; Estimated Glomerular Filt Rate > 60; Glucose 114 mg/dL (65-110); Lipase 93 U/L (23-300); Potassium 3.3 mmol/L (3.4-5.0); Sodium 138 mmol/L (137-145)
[2024-12-24 19:06] LABS: Add Urine Microscopic? YES; Appearance Urine Clear (Clear); Bacteria Urine None Seen /hpf; Bilirubin Urine 1+ (Negative); Blood Urine Negative (Negative); Color Urine Dark Yellow (Yellow); Glucose Urine UA Negative (Negative); Ketones Urine 3+ mg/dL (Negative); Leukocyte Esterase Ur Negative LEU/UL (Negative); Nitrate Urine Negative (Negative); Non Pathogenic Casts 0-2; Protein Urine Trace mg/dL (Negative); RBC Urine 0-2 /hpf (0-2); Specific Grav Ur 1.029 (1.001-1.035); Squamous Epithelial Cell Urine Occasional /hpf (Few); WBC Urine 0-5 /hpf (0-3)
[2024-12-24 19:15] VITALS: BP 133/76; PULSE 91; RESP 16; O2SAT 96
[2024-12-24 19:29] VITALS: BP 133/76; PULSE 91; RESP 18; O2SAT 97
[2024-12-24 19:38] LABS: Lactic Acid Reflex 0.8 mmol/L (0.7-2.0)
[2024-12-24 20:00] VITALS: O2SAT 100
[2024-12-24] MEDS: POTASSIUM CHLORIDE 20 MEQ PACKET (FOR LIQUID) PO (21:46)
[2024-12-24] MEDS: SODIUM CHLORIDE 0.9% IV 1,000 ML 999 ML IV CONT (22:07)
--- NOTE | 2024-12-24 22:13 | PC.NURSE ---
one set of blood cultures sent.
[2024-12-24] MEDS: PIPERACILLN/TAZ 3.375GM/NS50ML 3.375 GM/50 ML BAG IVPB (22:34)
--- NOTE | 2024-12-24 22:36 | PC.NURSE ---
Blood cultures were sent before starting antibiotic.
[2024-12-24 23:33] VITALS: BP 129/85; PULSE 98; RESP 16; O2SAT 100
[2024-12-25 00:12] VITALS: BP 131/87; PULSE 94; RESP 18; TEMP 36.7; O2SAT 100
[2024-12-25 00:15] VITALS: BMI 28.6
[2024-12-25] MEDS: SODIUM CHLORIDE 0.9% IV 1,000 ML 125 ML IV CONT ×3 (00:47→18:47)
[2024-12-25 04:40] VITALS: BP 121/82; PULSE 79; RESP 16; TEMP 36.1; O2SAT 100
[2024-12-25] MEDS: PIPERACILLN/TAZ 3.375GM/NS50ML 3.375 GM/50 ML BAG IVPB ×4 (04:42→22:34)
--- NOTE | 2024-12-25 07:42 | PM.IMHP ---
H&P: HPI History of Present Illness Date/Time: 12/25/24 07:42 Chief Complaint: Abdominal pain Narrative: Patient is a 34-year-old woman who for probably a month has had some brief, not severe, episodes of right upper quadrant abdominal pain. These have become more frequent. She had pain that was very severe starting Wednesday and she waited but this pain would not go away. It was associated with nausea and vomiting. She came to the emergency room yesterday. She was very tender in the right upper quadrant. Her liver function tests were slightly elevated. Her white blood cell count was just over 10,000. CT scan showed evidence of acute cholecystitis. She is admitted now regarding acute and chronic cholecystitis. She does feel much better this morning. She is a little nauseated but the pain is gone. No new complaints Review of Systems Review of Systems: All systems reviewed & are unremarkable except as noted in HPI and below (HPI) [facility] Family History Family History Mother No problems noted. Grandparent Diabetes mellitus Sibling Hyperlipemia Father Hyperlipemia Social History Social History Smoking status: Never smoker Alcohol intake: current Drinks per week: 1 Alcohol use details: EVERY FEW MONTHS (WHEN NOT ) Substance use: never Substance use type: does not use Do You Feel Safe in your Home?: Yes Lack of Transportation: No Lack of Food: Never True Current Housing: I Have Housing Concerned About Future Housing: No Difficulty Paying Gas/Electric Bills: No Difficulty Paying for Meds: No Currently Unemployed: No Education: Bachelor's Degree Difficulty w/ Childcare or Family Care: No Living arrangements: with family Spiritual care concerns: No Meds Home Medications and Allergies Home Medications ?Medication ?Instructions ?Recorded ?Confirmed ?Type fluticasone propionate 50 1 spray intranasal DAILY allergy 12/25/24 12/25/24 History mcg/actuation nasal symptoms spray,suspension (24 Hour Allergy Relief) Allergies Allergy/AdvReac Type Severity Reaction Status Date / Time No Known Allergies Allergy Verified 12/25/24 00:14 Vital Signs Vital Signs - 24 hr 12/24/24 17:55 12/24/24 19:15 12/24/24 19:29 Temperature 36.6 C Pulse Rate 72 91 91 Respiratory Rate 16 16 18 Blood Pressure 141/91 H 133/76 133/76 Pulse Oximetry 100 96 97 Oxygen Delivery 12/24/24 20:00 12/24/24 23:33 12/25/24 00:12 Temperature 36.7 C Pulse Rate 98 94 Respiratory Rate 16 18 Blood Pressure 129/85 131/87 Pulse Oximetry 100 100 100 Oxygen Delivery Room Air 12/25/24 00:36 12/25/24 04:40 Temperature 36.1 C L Pulse Rate 79 Respiratory Rate 16 Blood Pressure 121/82 Pulse Oximetry 100 Oxygen Delivery Room Air Exam Const: General: comfortable, no acute distress, alert and awake HENMT: Head: normocephalic and atraumatic Mouth: Yes Normal oral and palatal mucosa present Eyes: Conjunctivae: conjunctivae normal Pupils: Equal, round and reactive pupils present EOM: EOMs intact bilaterally Neck: Neck: normal visual inspection, no lymphadenopathy and nontender Resp: Effort & Inspection: normal respiratory effort Auscultation: clear to auscultation bilaterally Cardio: Rate: regular rate Rhythm: regular rhythm Heart sounds: no gallops, no murmurs and no rubs GI: Inspection: non-distended and scaphoid GI Palp: Yes Soft to palpation, No Tenderness to palpation present (GI), No Hepatomegaly present, No Splenomegaly present and No Palpable mass present Skin: Lesions: no lesions Rashes: no rashes Neuro: General: no focal motor deficits and CN's II-XI intact bilaterally Cranial nerves: Yes Equal, round and reactive pupils present, Yes Bilaterally intact EOM present, Yes facial symmetry and Yes Midline tongue present Speech: normal speech Motor exam (neuro): 5/5 motor strength present throughout and Motor abnormalities not present Extrem: General: no clubbing, cyanosis or edema and edema Psych: Affect: normal affect Thought process: Normal thought process present Insight: Good insight present (Psych) H&P: Results Labs Labs: Short CBC 12/24/24 Range/Units 18:36 WBC 10.5 H (4.5-10.0) K/mm3 Hgb 14.8 (12.0-15.0) g/dL Hct 42.8 (37.0-47.0) % Plt Count 220 (150-375) k/mm3 [facility] 12/24/24 18:36 Sodium 138 Potassium 3.3 L Chloride 102 Carbon Dioxide 23 BUN 16 Creatinine 0.85 Glucose 114 H Calcium 9.4 Liver Function 12/24/24 Range/Units 18:36 Total Bilirubin 1.7 H (0.2-1.3) mg/dL AST 181 H (14-36) U/L ALT 615 H (6-35) U/L Alkaline Phosphatase 107 (38-126) U/L Albumin 4.8 (3.5-5.1) g/dL Urine 12/24/24 Range/Units 18:36 Urine Color Dark yellow (Yellow) Urine Appearance Clear (Clear) Urine pH 6.0 (5.0-9.0) Ur Specific [place] 1.029 (1.001-1.035) Urine Protein Trace (Negative) mg/dL Urine Glucose (UA) Negative (Negative) mg/dL Assessment and Plan Assessment and plan (1) Acute cholecystitis: Code(s): K81.0 - Acute cholecystitis Status: Acute Assessment and Plan: Patient feeling better today. Will get ultrasound right upper quadrant. She can start on a low-fat diet once that test is done. Will need laparoscopic cholecystectomy. I discussed this procedure with the patient and her including the conduct of the surgery, the postoperative recovery, the risks, benefits, and alternatives. Will check on her ultrasound and hopefully do her surgery tomorrow. (2) Abnormal LFTs (liver function tests): Code(s): R79.89 - Other specified abnormal findings of blood chemistry Status: Acute Assessment and Plan: Slightly elevated, will repeat this morning. Pain is better this morning. Could just be from gallbladder inflammation.
[2024-12-25 08:04] LABS: Hemoglobin 12.9 g/dL (12.0-15.0); Mean Corpuscular HGB Conc 33.1 g/dl (32-36); Mean Corpuscular Hemoglobin 29.3 pg (26-34); Mean Corpuscular Volume 88.4 fl (80-100); Mean Platelet Volume 9.7 fl (7.4-10.4); Platelet Count Result 182 k/mm3 (150-375); Red Blood Count 4.41 M/mm3 (4.2-5.4); Red Cell Distribution Width 12.8 % (11.5-14.5); White Blood Count 5.9 K/mm3 (4.5-10.0)
[2024-12-25 08:21] LABS: Alanine Aminotransferase 509 U/L (6-35); Albumin Level 3.9 g/dL (3.5-5.1); Alkaline Phosphatase 94 U/L (38-126); Anion Gap 5 mmol/L (4-12); Aspartate Amino Transferase 176 U/L (14-36); Bilirubin,Total 1.2 mg/dL (0.2-1.3); Blood Urea Nitrogen 9 mg/dL (7-17); Calcium 8.2 mg/dL (8.4-10.2); Carbon Dioxide 24 mmol/L (22-30); Chloride 111 mmol/L (98-107); Estimated CRCL calculation 98 ml/min; Estimated Glomerular Filt Rate > 60; Glucose 81 mg/dL (65-110); Potassium 3.7 mmol/L (3.4-5.0); Sodium 140 mmol/L (137-145)
[2024-12-25] MEDS: ENOXAPARIN 40 MG/0.4 ML SYRINGE SUB-Q (08:58)
[2024-12-25 13:53] VITALS: BP 117/72; PULSE 59; RESP 18; TEMP 36.5; O2SAT 99
[2024-12-25 22:00] VITALS: BP 114/66; PULSE 59; RESP 16; TEMP 36.3; O2SAT 100
[2024-12-26] VITALS (8 sets, daily range): BP systolic 126–147; BP diastolic 68–90; PULSE 63–97; RESP 12–24; TEMP 36.1–37.2; O2SAT 99–100
[2024-12-26] MEDS: SODIUM CHLORIDE 0.9% IV 1,000 ML 125 ML IV CONT (03:22)
[2024-12-26] MEDS: PIPERACILLN/TAZ 3.375GM/NS50ML 3.375 GM/50 ML BAG IVPB ×3 (03:22→16:22)
[2024-12-26 06:55] LABS: Hematocrit 39.6 % (37.0-47.0); Hemoglobin 12.8 g/dL (12.0-15.0); Mean Corpuscular HGB Conc 32.3 g/dl (32-36); Mean Corpuscular Hemoglobin 29.3 pg (26-34); Mean Corpuscular Volume 90.6 fl (80-100); Mean Platelet Volume 10.2 fl (7.4-10.4); Platelet Count Result 168 k/mm3 (150-375); Red Blood Count 4.37 M/mm3 (4.2-5.4); Red Cell Distribution Width 12.7 % (11.5-14.5)
[2024-12-26 07:10] LABS: Alanine Aminotransferase 335 U/L (6-35); Albumin Level 3.7 g/dL (3.5-5.1); Alkaline Phosphatase 75 U/L (38-126); Anion Gap 7 mmol/L (4-12); Aspartate Amino Transferase 68 U/L (14-36); Blood Urea Nitrogen 6 mg/dL (7-17); Calcium 8.3 mg/dL (8.4-10.2); Carbon Dioxide 22 mmol/L (22-30); Chloride 111 mmol/L (98-107); Estimated CRCL calculation 98 ml/min; Estimated Glomerular Filt Rate > 60; Glucose 68 mg/dL (65-110); Potassium 3.9 mmol/L (3.4-5.0); Sodium 140 mmol/L (137-145)
[2024-12-26] MEDS: ENOXAPARIN 40 MG/0.4 ML SYRINGE SUB-Q (09:06)
[2024-12-26] MEDS: ONDANSETRON INJ 4 MG/2 ML VIAL IV PUSH (09:07)
--- NOTE | 2024-12-26 13:19 | WPDHPUPDATE1 ---
History and Physical Update Update Date/Time: 12/26/24 13:19 History and Physical has been reviewed, including an updated exam of the patient. There are NO changes in the patient's condition. Risks, benefits, and alternatives have been discussed and questions answered. Patient agrees to proceed with procedure.
--- NOTE | 2024-12-26 13:21 | WPDHPUPDATE1 ---
History and Physical Update Update Date/Time: 12/26/24 13:21 History and Physical has been reviewed, including an updated exam of the patient. There are NO changes in the patient's condition. Risks, benefits, and alternatives have been discussed and questions answered. Patient agrees to proceed with procedure.
--- NOTE | 2024-12-26 14:06 | WPDANESEPP ---
Anes - Eval Pre Procedure Procedure: Operation Date: 12/26/24 14:00 Proposed Procedures p Laparoscopic Cholecystectomy - Barrington Mukherjee MD Date/Time: 12/26/24 14:06 Pre Op Diagnosis: Acute cholecystitis Patient Data Age: 34 Gender: F Height: 1.65 m Weight: 78.1 kg Last Vital Signs Temp 36.1 C L 12/26/24 05:55 Pulse 71 12/26/24 05:55 Resp 16 12/26/24 05:55 BP 126/68 12/26/24 05:55 Pulse Ox 100 12/26/24 05:55 O2 Del Method Room Air 12/25/24 08:00 Allergies Allergy/AdvReac Type Severity Reaction Status Date / Time No Known Allergies Allergy Verified 12/25/24 00:14 Home Medications ?Medication ?Instructions ?Recorded ?Confirmed ?Type fluticasone propionate 50 1 spray intranasal DAILY allergy 12/25/24 12/25/24 History mcg/actuation nasal symptoms spray,suspension (24 Hour Allergy Relief) Laboratory Tests 12/26/24 05:57 WBC 6.0 K/mm3 (4.5-10.0) RBC 4.37 M/mm3 (4.2-5.4) Hgb 12.8 g/dL (12.0-15.0) Hct 39.6 % (37.0-47.0) MCV 90.6 fl (80-100) MCH 29.3 pg (26-34) MCHC 32.3 g/dl (32-36) RDW 12.7 % (11.5-14.5) Plt Count 168 k/mm3 (150-375) MPV 10.2 fl (7.4-10.4) Sodium 140 mmol/L (137-145) Potassium 3.9 mmol/L (3.4-5.0) Chloride 111 H mmol/L (98-107) Carbon Dioxide 22 mmol/L (22-30) Anion Gap 7 mmol/L (4-12) BUN 6 L mg/dL (7-17) Creatinine 0.73 mg/dL (0.7-1.0) Estim Creat Clear Calc 98 ml/min Estimated GFR > 60 (59 - ) Glucose 68 mg/dL (65-110) Calcium 8.3 L mg/dL (8.4-10.2) Total Bilirubin 1.0 mg/dL (0.2-1.3) AST 68 H U/L (14-36) ALT 335 H U/L (6-35) Alkaline Phosphatase 75 U/L (38-126) Total Protein 6.0 L g/dL (6.3-8.2) Albumin 3.7 g/dL (3.5-5.1) Blood Type B Negative Antibody Screen Negative HCG: negative Patient hx anesthesia problems: none Family hx anesthesia problems: none Results Review: All pre-operative results and documents have been reviewed as part of the pre-operative evaluation. [facility] Family History Family History Mother No problems noted. Grandparent Diabetes mellitus Sibling Hyperlipemia Father Hyperlipemia Social History Social History Smoking status: Never smoker Alcohol intake: current Drinks per week: 1 Alcohol use details: EVERY FEW MONTHS (WHEN NOT ) Substance use: never Substance use type: does not use Do You Feel Safe in your Home?: Yes Lack of Transportation: No Lack of Food: Never True Current Housing: I Have Housing Concerned About Future Housing: No Difficulty Paying Gas/Electric Bills: No Difficulty Paying for Meds: No Currently Unemployed: No Education: Bachelor's Degree Difficulty w/ Childcare or Family Care: No Living arrangements: with family Spiritual care concerns: No Exam Day of Procedure 12/26/24 14:06 Patient weight: overweight Heart: regular rate and rhythm Lungs: normal air movement Airway: Mallampati scale class II Neurological: alert and oriented
[2024-12-26] MEDS: BUPIVACAINE/EPINEPHRINE 0.5% 50 ML VIAL 30 ML INFILTRATE (14:50)
[2024-12-26] MEDS: LACTATED RINGERS 1,000 ML 30 ML IV CONT (15:15)
--- NOTE | 2024-12-26 15:15 | W.PM.PROC2 ---
Procedure Note - Detailed Date of Procedure 12/26/24 Pre-op Diagnosis Chronic cholecystitis with cholelithiasis Post-op Diagnosis Same Procedure Performed Laparoscopic cholecystectomy Surgeon Barrington Mukherjee MD Behavioral Health Therapist [facility] Anesthesia General and Local Indications Patient is a 34-year-old woman who had a baby last April. She has had several episodes of postprandial right upper quadrant abdominal pain with nausea and vomiting. She had a particularly bad episode 2 days ago and came to the emergency room. After analgesics and IV antibiotics, she was feeling better and tolerated oral intake. Her ultrasound showed a thickened gallbladder with evidence of cholecystitis. She is taken to surgery now for laparoscopic cholecystectomy Findings Chronic inflammation, many stones, no biliary ductal dilatation, normal-appearing liver Description of Procedure Patient was taken to surgery and induced into general anesthesia. The abdomen was prepped and draped. Trocars were placed in usual fashion using [employer] optical trocars and a 5 mm camera. The gallbladder was distended and the jain were mildly thickened. The gallbladder was decompressed with a laparoscopic aspirator. A Vicryl endoloop was used to close the cholecystotomy. The gallbladder was then retracted anterosuperiorly. There were adhesions from about the midportion of the gallbladder down to the infundibulum. These were taken down using cautery and blunt dissection. I then place traction on the infundibulum and began dissection in the cholecystohepatic triangle. The lateral segment of the left lobe of the liver was curving around to the midline in obscuring my view of the lower gallbladder. I placed a 5th trocar in the left mid abdomen. A laparoscopic Kittner was then used by the camera draper to retract the lateral segment of the left lobe out of our view. I then again place traction on the infundibulum and began dissecting in the triangle of [place]. There was chronic inflammation in this area with also some can acute edema and hypervascularity. The cystic duct and cystic artery were dissected thoroughly. The gallbladder was dissected off the liver at its lower 3rd. Critical view was achieved. I then securely clipped and divided the cystic artery and cystic duct. The gallbladder was then retracted anteriorly and the attachments of the gallbladder to the gallbladder fossa and liver were carefully taken down. There was minimal bleeding. There was no entry into the gallbladder or the liver. Eventually the gallbladder was completely freed from the liver. It was placed in an Endo-Catch bag and was able to be retrieved through the 10 11 epigastric trocar site. The epigastric trocar was then replaced. The liver was again retracted and we reviewed the gallbladder fossa and right upper quadrant. Some irrigation and suctioning were done. There was no evidence of bleeding or bile leakage. We then removed the retractor on the liver. We evacuated CO2 and removed the trocar sleeves. Skin wounds were closed with subcuticular 4-0 Monocryl skin suture. The wounds were dressed with Exofin surgical adhesive. Patient was awakened and taken to recovery in good condition. Sponge and needle counts were correct x2. Estimated Blood Loss -5 Drains No Packing No Pathology Yes (Gallbladder) Complications None Condition Stable Disposition PACU [facility] Billing Surgery - Charge Forward: Surgery Billing (Laparoscopic cholecystectomy)
--- NOTE | 2024-12-26 15:27 | P.DS_ITS ---
DS: Admitting Diagnosis Discharge Date 12/26/2024 Admitting Diagnosis * Acute cholecystitis * Elevated liver function tests DS: Discharge Diagnosis Discharge Diagnosis (1) Cholelithiasis with chronic cholecystitis: Qualifiers: Cholelithiasis location: gallbladder Biliary obstruction: without biliary obstruction Qualified Code(s): K80.10 - Calculus of gallbladder with chronic cholecystitis without obstruction Code(s): K80.10 - Calculus of gallbladder with chronic cholecystitis without obstruction Status: Acute Assessment and Plan: Laparoscopic cholecystectomy performed per Dr. Mukherjee 12/26/2024. Patient went home later that day. (2) Abnormal LFTs (liver function tests): Code(s): R79.89 - Other specified abnormal findings of blood chemistry Status: Acute Assessment and Plan: Normal-sized common bile duct on ultrasound. Liver function tests were slightly elevated on admission and decreased throughout her stay. Consistent with cholecystitis related elevation. DS: Summary Hospital Course Hospital Course: Patient came to the emergency room on 12/24/2024 with severe right upper quadrant pain and vomiting. CT scan suggested cholecystitis and her liver enzymes were slightly elevated. She was admitted for analgesics and IV antibiotics as well as IV fluids. Her pain improved and she was pain free by the following morning. She had an ultrasound yesterday which showed cholecystitis and gallstones. She was taken to surgery on 12/26/[address] Mukherjee. Laparoscopic cholecystectomy was performed. Patient did well following the surgery and went home later that day. Time Spent with Patient Time attestation: Total time spent providing and/or coordinating discharge services: DS: Data Data Completed and Pending Pending studies at discharge: Pending at discharge 12/26/24 15:06 Surgical [PTH] Routine Labs on day of discharge: Labs from last 24 hours 12/26/24 05:57 WBC 6.0 RBC 4.37 Hgb 12.8 Hct 39.6 MCV 90.6 MCH 29.3 MCHC 32.3 RDW 12.7 Plt Count 168 MPV 10.2 Sodium 140 Potassium 3.9 Chloride 111 H Carbon Dioxide 22 Anion Gap 7 BUN 6 L Creatinine 0.73 Estim Creat Clear Calc 98 Estimated GFR > 60 Glucose 68 Calcium 8.3 L Total Bilirubin 1.0 AST 68 H ALT 335 H Alkaline Phosphatase 75 Total Protein 6.0 L Albumin 3.7 Blood Type B Negative Antibody Screen Negative Preliminary micro results at discharge 12/24/24 22:09 Blood Culture - Preliminary Blood 12/24/24 22:22 Blood Culture - Preliminary Blood Discharge Plan Discharge Attending physician on discharge: Barrington Mukherjee Discharging Clinician: Barrington Mukherjee Anticipated Discharge Date/Time: 12/26/24 18:00 Patient Disposition: Home Activity: may shower, no straining and as tolerated Diet: low fat Wound Care Instructions: incision open to air Discharge Instructions: 1. May shower the day after surgery over incisions. 2. Call office for: -Wound increasingly painful or bleeding -Vomiting -Fever of greater than 101 degrees 3. Expect some blood on dressing and old blood on skin. 4. If no bowel movement for three days, take 1 oz. (30 ml) Milk of Magnesia, if no results, take Fleets enema. 5. No heavy lifting > 15-20 pounds for 2 weeks. 6. No driving for 3 days or while taking narcotic pain medications. 7. Up walking 10-30 minutes three times per day. 8. Resume previous home medications. 9. Follow-up 10-14 days in office for wound check or as previously scheduled. 10. Oral pain medications prescription to be sent home with patient. 11. NUTRITION: Start out by drinking fluids and increase your diet as tolerated. If you experience nausea, try dry toast, crackers, and 7-UP. If nausea or vomiting persists, contact your surgeon?s office. Patient Instructions: Antibiotic Form Patient Language: Citizen Of [place] Stand Alone Forms: General Discharge Information Follow-up/Referrals: Barrington Mukherjee MD [Physician] - 3 Weeks (Call Dr. Jenkins office to make follow- up appointment) Discharge Medications: New oxycodone-acetaminophen [Percocet] 5-325 mg tablet 0.5 - 1 tablet PO Q4H PRN (Reason: pain) Qty: 10 0RF ketorolac 10 mg tablet 10 mg PO Q6H 4 Days Qty: 16 0RF Continued fluticasone propionate [24 Hour Allergy Relief] 50 mcg/actuation spray,suspension 1 spray intranasal DAILY Rx Instructions: administer into each nostril Date of admission: 12/26/24 14:23 Primary Care Provider: PHYSICIAN,TREATMENT SUPERVISOR Admitting Provider: Barrington Mukherjee Attending physician on admission: Barrington Mukherjee Condition: Improved
== END 2024-12-26 18:05 | disposition home or self-care (01) ==
LOC: ANHED 21:34 → ANH3MEDSUR 22:52
PROVIDERS: Admitting Provider Surgery; Emergency Provider Physician Assistant; Visit Provider Surgery
PROC: 0FT44ZZ Resection of Gallbladder, Percutaneous Endoscopic Approach (ICD-10-PCS; CPT 47562; principal; 2024-12-26 14:00)
DX: K80.10 Calculus of gallbladder with chronic cholecystitis without obstruction (principal); K82.8 Other specified diseases of gallbladder; R79.89 Other specified abnormal findings of blood chemistry; N83.201 Unspecified ovarian cyst, right side
CPT/HCPCS: 47562; 36415; 74177; 76705; 80053; 81001; 81025; 83605; 83690; 85025; 85027; 86850; 86900; 86901; 87040; 88304; 96365; 96375; 96376; 99285; A9270; J1100; J1650; J1885; J2003; J2250; J2405; J2543; J2704; J3010; J7030; J7120; Q9967